=== PATIENT | female | born 1980 | race Two or more races ===

== ENCOUNTER 2021-11-14 10:58 | Emergency (ER) | payer MEDICAID ==
[~2021-11-14] VITALS: Ht 157.5 cm; Wt 75.0 kg
[~2021-11-14 10:58] MED LIST: AMOX875T2 PO; IBUP-1573 PO; TRAM50TA2 PO
[2021-11-14 11:02] VITALS: BP 144/94
== END 2021-11-14 11:42 | disposition home or self-care (01) ==
LOC: ER 10:58
DX: F10.20 Alcohol dependence, uncomplicated (principal); F15.90 Other stimulant use, unspecified, uncomplicated; Z72.89 Other problems related to lifestyle; Z79.899 Other long term (current) drug therapy; Z79.2 Long term (current) use of antibiotics; Y90.9 Presence of alcohol in blood, level not specified
CPT/HCPCS: 99281

== ENCOUNTER 2021-11-24 11:20 | Emergency (ER) | payer MEDICAID ==
[~2021-11-24] VITALS: Ht 152.4 cm; Wt 76.3 kg
[2021-11-24 11:54] VITALS: BP 111/88
== END 2021-11-24 13:08 | disposition home or self-care (01) ==
LOC: ER 11:21
DX: F15.10 Other stimulant abuse, uncomplicated (principal); Z00.00 Encounter for general adult medical examination without abnormal findings
CPT/HCPCS: 99281

== ENCOUNTER 2022-02-03 18:09 | Emergency (ER) | payer MEDICAID ==
[~2022-02-03] VITALS: Ht 167.6 cm; Wt 54.5 kg
[2022-02-03 18:29] VITALS: BP 155/92
--- NOTE | 2022-02-03 18:30 | NUR ---
TRIAGE IS PER ALONSO Causey RN
[2022-02-03] MEDS ORDERED: AMOX500C2 PO (20:00)
[2022-02-03] MEDS ORDERED: amoxicillin 250mg capsule PO ONE (20:05)
[2022-02-03] MEDS ORDERED: ketorolac trometh. 30mg/ml inj. IM ONE (20:05)
[2022-02-03] MEDS ORDERED: HYDROcodone/acetaminophen 10/325mg tab PO ONE (20:05)
== END 2022-02-03 20:16 | disposition home or self-care (01) ==
LOC: ER 18:09
DX: T85.848A Pain due to other internal prosthetic devices, implants and grafts, initial encounter (principal); F15.90 Other stimulant use, unspecified, uncomplicated; Z72.89 Other problems related to lifestyle; Z79.899 Other long term (current) drug therapy; Y92.89 Other specified places as the place of occurrence of the external cause
CPT/HCPCS: 96372; 99283; J1885

== ENCOUNTER 2022-07-13 21:58 | Emergency (ER) | payer MEDICAID ==
[~2022-07-13] VITALS: Ht 152.4 cm; Wt 80.0 kg
[2022-07-13 22:13] VITALS: BP 132/94
== END 2022-07-14 02:27 | disposition left against medical advice (07) ==
LOC: ER 21:59
DX: R21 Rash and other nonspecific skin eruption (principal); R07.0 Pain in throat; Z53.21 Procedure and treatment not carried out due to patient leaving prior to being seen by health care provider

== ENCOUNTER 2023-12-01 08:14 | Emergency (ER) | payer MEDICAID ==
[~2023-12-01] VITALS: Ht 152.4 cm; Wt 69.2 kg
[2023-12-01 08:17] VITALS: BP 143/99; PULSE 90; TEMP 98; O2SAT 98
[2023-12-01] MEDS: ondansetron 4mg rapidly disintigrating tab PO ONE (09:16)
[2023-12-01 09:18] VITALS: RESP 17
[2023-12-01] MEDS: HYDROcodone/acetaminophen 10/325mg tab PO ONE (09:18)
[2023-12-01 09:42] LABS: URINE HCG NEGATIVE (NEG)
[2023-12-01 09:43] LABS: BILIRUBIN,URINE NEGATIVE (Neg); CLARITY,URINE SLIGHTLY CLOUDY (Clear); COLOR,URINE YELLOW (Yellow); GLUCOSE, URINE NEGATIVE (Neg); KETONES,URINE NEGATIVE (Neg); LEUKOCYTE ESTERASE ,URINE NEGATIVE (Neg); NITRITES, URINE NEGATIVE (Neg); OCCULT BLOOD,URINE NEGATIVE (Neg); PH,URINE 6.5 (4.8-8.0); PROTEIN,URINE NEGATIVE (Neg); UROBILINOGEN,URINE 0.2 E.U/dL (0.2-1.0)
[2023-12-01 09:59] LABS: UA COLLECTION TYPE CLN CATCH MIDSTREAM
[2023-12-01 10:00] LABS: BACTERIA,URINE NONE SEEN /HPF (Neg); RBC,URINE NONE SEEN /HPF (0-2); SQUAMOUS EPITHELIAL CELL,UR MANY /LPF (FEW); WBC,URINE NONE SEEN /HPF (0-4)
== END 2023-12-01 11:02 | disposition home or self-care (01) ==
LOC: ER 08:15
DX: R10.2 Pelvic and perineal pain (principal); F15.90 Other stimulant use, unspecified, uncomplicated; Z88.1 Allergy status to other antibiotic agents; Z79.2 Long term (current) use of antibiotics; Z79.1 Long term (current) use of non-steroidal anti-inflammatories (NSAID); Z79.899 Other long term (current) drug therapy
CPT/HCPCS: 76830; 76856; 81001; 81025; 93976; 99284

== ENCOUNTER 2024-03-24 08:03 | Emergency (ER) | payer MEDICAID ==
[~2024-03-24] VITALS: Ht 152.4 cm; Wt 68.0 kg
[2024-03-24 09:35] LABS: BASOPHILS % (AUTO) 0.5 % (0-1); EOSINOPHILS % (AUTO) 0.2 % (0-6); HEMATOCRIT 38.5 % (35.0-45.0); HEMOGLOBIN 12.8 g/dl (12.0-16.0); LYMPHOCYTES # (AUTO) 1.3 X10'3 (1.1-4.8); LYMPHOCYTES % (AUTO) 19.9 % (21-51); MEAN CORPUSCULAR HEMOGLOBIN 30.6 PG (27.0-31.0); MEAN CORPUSCULAR HGB CONC 33.2 g/dL (33.0-36.5); MEAN CORPUSCULAR VOLUME 92.1 FL (78-98); MEAN PLATELET VOLUME 7.8 FL (7.4-10.4); MONOCYTES # (AUTO) 0.3 X10'3 (0-0.9); MONOCYTES % (AUTO) 4.1 % (2-12); NEUTROPHILS # (AUTO) 5.1 X10'3 (1.8-7.7); NEUTROPHILS % (AUTO) 75.3 % (42-75); PLATELET COUNT 272 X10'3 (140-440); RED BLOOD COUNT 4.18 X10'6 (4.20-5.60); RED CELL DISTRIBUTION WIDTH 13.4 % (11.5-14.5); WHITE BLOOD COUNT 6.8 X10'3 (4.5-11.0)
[2024-03-24 09:47] LABS: ALBUMIN 3.7 G/DL (3.4-5.0); ANION GAP 8 (8-16); BLOOD UREA NITROGEN 10 MG/DL (7-18); BUN/CREATININE RATIO 14.7 (10.0-20.0); CALCIUM 9.3 MG/DL (8.5-10.1); CHLORIDE 104 MMOL/L (99-107); CREATININE 0.68 MG/DL (0.40-0.90); GLUCOSE 94 MG/DL (70-104); POTASSIUM 3.8 MMOL/L (3.5-5.1); PRO BRAIN NATRIURETIC PEPTIDE 326 PG/ML (0-125); SODIUM 138 MMOL/L (135-145); TOTAL CARBON DIOXIDE 26.4 MMOL/L (24-32); eCRCL 77 ML/MIN; eGFR > 90 ML/MIN
[2024-03-24] MEDS ORDERED: ATEN-27 PO (11:29)
[2024-03-24] MEDS ORDERED: HYDR25TA5 PO (11:29)
[2024-03-24 11:40] VITALS: BP 133/84; PULSE 88; RESP 16; TEMP 98.4; O2SAT 98
== END 2024-03-24 11:42 | disposition home or self-care (01) ==
LOC: ER 08:04
DX: I10 Essential (primary) hypertension (principal); F41.9 Anxiety disorder, unspecified; R42 Dizziness and giddiness; M79.89 Other specified soft tissue disorders; F15.90 Other stimulant use, unspecified, uncomplicated; Z88.1 Allergy status to other antibiotic agents; Z79.2 Long term (current) use of antibiotics; Z79.1 Long term (current) use of non-steroidal anti-inflammatories (NSAID); Z79.899 Other long term (current) drug therapy
CPT/HCPCS: 36415; 80048; 83880; 84484; 85025; 99283

== ENCOUNTER 2024-12-28 14:59 | Outpatient (CLI) | payer MEDICAID ==
[~2024-12-28 14:59] MED LIST changes: +ATEN-27 PO; +HYDR25TA5 PO
--- NOTE | 2024-12-28 19:44 | RADIOLOGY REPORT ---
TRANSABDOMINAL AND TRANSVAGINAL PELVIC ULTRASOUND CLINICAL HISTORY: PERSONAL HISTORY OF OTH DISEASES OF THE FEMALE GENITAL TRACT TECHNIQUE: Multiple grayscale ultrasound images were obtained of the pelvis via transabdominal and tr ansvaginal approach. Limited color Doppler and spectral Doppler acquisitions were also obtained. COMPARISON: US ULTRASOUND PELVIS W/ORWO DPLX on DOS: 12/01/23 FINDINGS: Uterus: 10.9 x 5.3 x 7.0 cm. The uterine contour is smooth. There are uterine fibroids larger of whic h in the posterior uterine body measures 2.9 cm. Endometrium: 1.23 cm. No endometrial mass is seen. Trace amount of fluid in the endometrial space. Right adnexa: right ovary 3.4 x 3.2 x 3.4 cm. Normal arterial blood flow in the ovary. No right adnex al mass seen. There is a cyst in the right ovary measuring 2.6 cm. Left adnexa: left ovary 2.8 x 1.9 x 1.1 cm. Normal arterial blood flow in the ovary. No left adnexal mass seen. Other: None IMPRESSION: 1. Mildly enlarged fibroid uterus. 2. Normal ovaries apart from a simple right ovarian cyst. 3. Trace fluid in the endometrial canal which may be blood products.
== END 2024-12-28 23:59 | disposition home or self-care (01) ==
LOC: RAD 14:59
PROVIDERS: ATTEND General Practice
DX: D25.9 Leiomyoma of uterus, unspecified (principal); N83.201 Unspecified ovarian cyst, right side; Z87.42 Personal history of other diseases of the female genital tract
CPT/HCPCS: 76830; 76856; 93976